=== PATIENT | female | born 1955 | race Caucasian/White ===

== ENCOUNTER 2023-09-11 11:41 | Emergency (ER) | payer MEDICARE, BC ==
[~2023-09-11] VITALS: Ht 154.9 cm; Wt 62.1 kg
[2023-09-11] MEDS ORDERED: METO50ER PO (12:34)
[2023-09-11] MEDS ORDERED: LOSA50 PO (12:34)
[2023-09-11] MEDS ORDERED: ATOR40TA PO (12:34)
[2023-09-11 13:51] VITALS: BP 172/91
== END 2023-09-11 14:39 | disposition home or self-care (01) ==
LOC: ER 11:41
DX: M25.561 Pain in right knee (principal)
CPT/HCPCS: 29505; 73562-RT; 93971; 96372-59; 99284-25; A9270; J1885